=== PATIENT | male | born 1970 | race Caucasian/White ===

== ENCOUNTER 2024-08-06 00:03 | Emergency (ER) | payer BC, SELFPAY ==
[2024-08-06 00:04] VITALS: BMI 29.6
[2024-08-06 00:05] VITALS: BP 162/96
[2024-08-06] MEDS: TORADOL 60 MG IM (01:29)
--- NOTE | 2024-08-06 03:35 | DOWNTIME ---
There was a [employer] Downtime on 08/06/2024 from 0200 to 08/06/2024 at 0325 . Downtime documentation of patient's care, including medication administrations, has been reconciled in the electronic record per guidelines. Refer to the
patient's paper chart under the miscellaneous tab to see printed paper medication records and downtime forms.
--- NOTE | 2024-08-06 06:45 | ED.GENMED ---
History of Present Illness
General
Chief Complaint: Dental Problem
Source: patient
Exam Limitations: none
Time Seen by Provider: 08/06/24 01:17
Nursing documentation reviewed up to this point in time: agreed with
History of Present Illness
History of Present Illness:
This is a 54-year-old gentleman with history of tuf-[id number] diabetes maintained on Ozempic who presents with several day history of left upper central incisor toothache. He was evaluated by his dentist on Saturday, August 03 and prescribed
amoxicillin which he started yesterday. He has an appointment tomorrow, August 06 in the a.m. with an oral surgeon. Despite amoxicillin 500 mg 3 times daily he continues with left upper central dental pain and has now noticed some local swelling
of the gingiva just above his tooth. He has not had a fever nor chills, no sore throat, no tongue swelling, no headache.
Blood sugars are generally well-controlled. He has been taking ibuprofen 400 mg intermittently for pain, last dose around dinnertime.
Past History
Past History
ED Past Medical History: NIDDM
ED Past Surgical History: None
Social History
Tobacco: Non-smoker
Living: with family
Employment: Employed
Family History
Family History: Other (Noncontributory)
Phy Exam
Physical Exam
Physical Exam:
GENERAL: 54-year-old male appears his stated age, awake and alert, appears mild distress related to pain. Easily communicative. Afebrile.
EYE: pupils equal and reactive. anicteric
NECK: Supple, nontender, no meningismus, no significant adenopathy.
ENT: posterior pharynx is clear, oral mucosa is moist. TM clear b/l, nares patent. Left upper central incisor has dental abscess anterior aspect of the gingiva that is soft, fluctuant and moderately tender to palpation. There is no facial edema
nor facial erythema.
CARDIAC: Regular rate and rhythm. no murmur.
LUNGS: Clear breath sounds bilaterally, no acute respiratory distress, no wheezes/rales/rhonchi
ABDOMEN: Soft, nondistended, without focal tenderness
NEUROLOGICAL: Alert and oriented x3, no focal neuro deficits. Gait is moody and steady.
SKIN: Warm and dry, normal color, skin intact. No rash.
MUSCULOSKELETAL: No C/C/E. peripheral pulses are full and equal b/l. No palpable tenderness.
PSYCH: Normal and appropriate interaction.
Course
Orders/Labs/Results
Orders:
Orders
08/06/24 01:27
Ketorolac [Toradol] 60 mg .ROUTE .STK-MED ONE
08/06/24 01:29
Ketorolac [Toradol] 60 mg IM NOW STA
08/06/24 02:44
Clindamycin HCl [Cleocin] 300 mg .ROUTE .STK-MED ONE
Vital Signs
Initial and Last Documented VS:
Initial Vital Signs
Temp Pulse Resp BP Pulse Ox
98.9 F 87 16 162/96 99
08/06/24 00:05 08/06/24 00:05 08/06/24 00:05 08/06/24 00:05 08/06/24 00:05
Last Documented Vital Signs
Temp Pulse Resp BP Pulse Ox
98.9 F 87 16 162/96 99
08/06/24 00:05 08/06/24 00:05 08/06/24 00:05 08/06/24 00:05 08/06/24 00:05
MDM/Problems Addressed
Differential Diagnosis Includes:
Patient presents with focal dental abscess left upper central incisor. Will medicate for pain with IM dose of Toradol as well as topical lidocaine gel. Will plan for focal aspiration of abscess.
Overall nontoxic in appearance, afebrile and nothing on exam to suggest deeper infection nor facial cellulitis.
At this point no indication for imaging nor laboratory studies.
Chronic conditions affecting care: DM
*Pulse Oximetry
Patient hypoxic: no
*Critical Care Note
Total Time (30-74mins, 75-104mins- exclusive of procedures): Not Applicable
Update Note
Update Note:
02:30
Pain is markedly improved after IM dose of Toradol.
3 cc syringe, 18-gauge needle abscess aspirated of 1.5 mL purulent material.
Patient tolerated procedure well and reports significant relief of pain after abscess drained.
Will add ibuprofen 800 mg to be taken every 6 hours as needed for pain.
Will give a one-time dose of oral clindamycin here.
Patient has an appointment with oral surgeon scheduled for 9:45 AM. Recommend he continue amoxicillin and discussed antibiotic coverage with oral surgeon today.
ED Attending Note
-
Portions of this chart may have been created with voice recognition software.� Occasional wrong word or��sound alike� substitutions may have occurred due to the inherent limitations of voice recognition software.
Discharge Plan
Departure
Patient Disposition: Home (Routine Discharge)
Date of Disposition: 08/06/24
Time of Disposition: 02:44
Patient with high blood pressure during this ER visit?: Yes
Discharge Problem:
Abscess, dental
Instructions: Tooth Abscess (DC), BLOOD PRESSURE
Prescriptions:
New
ibuprofen 800 mg tablet
800 mg PO QIDPRN PRN (Reason: pain, fever) Qty: 30 0RF
No Action
Ozempic 1 mg/dose (2 mg/1.5 mL) Pen Injector
1 mg SC QWEEK
amoxicillin 500 mg Tablet
500 mg PO TID
Referrals:
Abdiel Kim MD [Family Provider] -
Activity Restrictions/Additional Instructions:
Follow-up with oral surgeon this morning as already scheduled.
Interventions
Interventions:
*Risk Screen - Suicide Last Done: 08/06/24 00:05
*Neglect/Abuse Screening Last Done: 08/06/24 00:05
Discharge Date and Time
Discharge Date/Time: 08/06/24 02:45
Print Language: SYRIAN
== END 2024-08-06 02:45 | disposition home or self-care (01) ==
LOC: EMR 00:03
PROVIDERS: EMERGENCY PHYSICIAN Emergency Medicine; FAMILY PHYSICIAN Family Medicine
DX: K04.7 Periapical abscess without sinus (principal); E11.9 Type 2 diabetes mellitus without complications; Z79.85 Long-term (current) use of injectable non-insulin antidiabetic drugs
CPT/HCPCS: 41800; 96372; 99284